=== PATIENT | female | born 1990 | race Caucasian/White ===

== ENCOUNTER 2019-11-03 19:13 | Emergency (ER) | payer OTHER ==
[~2019-11-03] VITALS: Ht 154.9 cm; Wt 98.4 kg
== END 2019-11-03 22:21 | disposition home or self-care (01) ==
LOC: ER 19:13
DX: L02.412 Cutaneous abscess of left axilla (principal)

== ENCOUNTER 2020-10-31 10:43 | Emergency (ER) | payer OTHER ==
[~2020-10-31] VITALS: Ht 154.9 cm; Wt 99.8 kg
[2020-10-31] MEDS ORDERED: KETO10TA2 PO (14:20)
[2020-10-31] MEDS ORDERED: PROMETHAZINE HC25 MG PO (14:20)
== END 2020-10-31 14:33 | disposition home or self-care (01) ==
LOC: ER 10:43
DX: B34.9 Viral infection, unspecified (principal); G43.909 Migraine, unspecified, not intractable, without status migrainosus; Z03.818 Encounter for observation for suspected exposure to other biological agents ruled out

== ENCOUNTER 2020-12-27 20:04 | Emergency (ER) | payer OTHER ==
[~2020-12-27] VITALS: Ht 154.9 cm; Wt 103.4 kg
[~2020-12-27 20:04] MED LIST: KETO10TA2 PO; PROMETHAZINE HC25 MG PO
[2020-12-27] MEDS ORDERED: ZOFRAN8 MG PO (22:45)
== END 2020-12-27 23:03 | disposition home or self-care (01) ==
LOC: ER 20:04
DX: O21.8 Other vomiting complicating pregnancy (principal); Z34.01 Encounter for supervision of normal first pregnancy, first trimester

== ENCOUNTER 2022-12-18 21:59 | Emergency (ER) | payer OTHER ==
[~2022-12-18] VITALS: Ht 154.9 cm; Wt 86.6 kg
[~2022-12-18 21:59] MED LIST changes: +ZOFRAN8 MG PO
== END 2022-12-18 23:36 | disposition home or self-care (01) ==
LOC: ER 21:59
DX: M62.830 Muscle spasm of back (principal)